=== PATIENT | female | born 1965 | race Caucasian/White ===

== ENCOUNTER 2023-11-06 03:22 | Emergency (ER) | payer OTHER, SELFPAY ==
[2023-11-06 03:27] VITALS: BP 161/93; PULSE 99; RESP 18; TEMP 36.6; O2SAT 99
--- NOTE | 2023-11-06 03:30 | DI.RAD_ITS ---
Exam(s) XR SHOULDER LT COMPLETE 2+V EXAM: XR SHOULDER LT COMPLETE 2+V CLINICAL HISTORY: fall, left shoulder pain. TECHNIQUE: 2D digital imaging was performed of the left shoulder. Four images were obtained. AP, G rashey and Y views were obtained. COMPARISON: No exams were available for comparison FINDINGS: BONES: No acute fracture is present. No bony destructive lesion is seen. JOINTS: No dislocation present. Mild degenerative changes at the acromioclavicular joint. The glenoh umeral joint is well maintained. SOFT TISSUE: In the left hilum, there is a spiculated appearance of the soft tissues which are irregu lar. A hilar mass, or infiltrate can not be excluded. IMPRESSION: 1. No acute fracture or dislocation. 2. Spiculated appearance seen in the left hilum. Mass can not be excluded. Chest x-ray and or CT sc an of the chest is recommended for further evaluation. Unexpected findings DATA REPOSITORY: RADIATION DOSE DELIVERED:
--- NOTE | 2023-11-06 03:39 | DI.CT_ITS ---
Exam(s) CT HEAD FACIAL WO EXAM: CT HEAD FACIAL WO CLINICAL HISTORY: fall, struck face/right maxilla. TECHNIQUE: Imaging Protocol: Axial computed tomography images with coronal and sagittal reformatted images were created and reviewed COMPARISON: No exams were available for comparison FINDINGS: CT Head: Ventricles and Extra axial spaces: Normal in size and morphology for the patient's age. Hemorrhage: None. Cerebral parenchyma: Normal. Midline shift: None. Brainstem/Cerebellum: Normal. Calvarium: Prior left craniotomy. Visualized Paranasal sinuses/Mastoids: There is a small fluid level in the right maxillary sinus. Th ere is opacification of a few right ethmoid air cells. Soft Tissues: Unremarkable. CT Face: Facial Bones: There is a right orbital floor fracture there is a 3 mm depression of the fracture. N o muscle entrapment is seen. There is a tiny amount of retrobulbar air. There does appear to be inv olvement of the infraorbital foramen. There may also be a medial orbital wall fracture on the right. Sinuses and Mastoids: There is a small fluid level in the right maxillary sinus. Globes, extraocular muscles, optic nerves and retrobulbar fat: Normal. Upper aerodigestive tract: Normal. Mandible and bilateral temporomandibular joints: Normal. Soft tissues: There is edema seen in the soft tissues over the right cheek and the right periorbital soft tissues. There is a small amount of gas seen in the soft tissues of the right face. IMPRESSION: 1. No acute intracranial process. 2. Right orbital floor fracture with 3 mm of depression. No muscle entrapment is identified. There is a tiny amount of retrobulbar air on the right. There is a question of involvement of the infraorb ital foramen. 3. Question of a fracture of the medial wall of the right orbit. 4. Soft tissue swelling in the right periorbital region and over the right cheek with a small amount of gas in the soft tissues. No radiopaque foreign bodies are seen. RADIATION DOSE DELIVERED: Total DLP DATA REPOSITORY: All CT scans at this facility are submitted to the National Radiology Data Registry (NRDR) Dose Index Registry (DIR) with the [employer] (A[employer]). RADIATION OPTIMIZATION: All CT scans at this facility use at least one of these dose optimization te chniques: automated exposure control; mA and/or kV adjustment per patient size (includes targeted exa ms where dose is matched to clinical indication); or iterative reconstruction.
[2023-11-06] MEDS: Acetaminophen 500 MG TAB 1000 MG PO (03:50)
--- NOTE | 2023-11-06 04:59 | DI.VRAD_ITS ---
PROCEDURE INFORMATION: Exam: CT Head Without Contrast Exam date and time: 11/06/2023 4:23 AM Age: 57 years old Clinical indication: Injury or trauma; Blunt trauma (contusions or hematomas); Consciousness not specified; Cheek bone; Injury details: Fall, struck face/right maxilla TECHNIQUE: Imaging protocol: Computed tomography of the head without contrast. COMPARISON: No relevant prior studies available. FINDINGS: Limitations: Images degraded due to artifact caused by external hardware. Brain: No intracranial hemorrhage appreciated. No significant focal mass effect or significant midline shift. Small chronic bifrontal hygromas. Generalized parenchymal volume loss. Cerebral ventricles: No disproportionate ventriculomegaly. Paranasal sinuses: No air-fluid levels seen. Mastoid air cells: No mastoid effusion. Bones/joints: Left craniotomy. Facial bone fractures are present. CT scan of the facial bones dictated separately. Soft tissues: Left hand pole encephalomalacia. Right periorbital soft tissue swelling. Vasculature: Arterial calcifications. IMPRESSION: 1. No intracranial sequelae of trauma appreciated. 2. Facial bone fractures are present. CT scan of the facial bones dictated separately. PROCEDURE INFORMATION: Exam: CT Maxillofacial Without Contrast Exam date and time: 11/06/2023 4:23 AM Age: 57 years old Clinical indication: Injury or trauma; Blunt trauma (contusions or hematomas); Consciousness not specified; Cheek bone; Injury details: Fall, struck face/right maxilla TECHNIQUE: Imaging protocol: Computed tomography of the face without contrast. COMPARISON: No relevant prior studies available. FINDINGS: Limitations: Artifact from metallic dental hardware obscures surrounding tissues. Orbital cavities: Globes intact. Bones/joints: Comminuted depressed right orbital floor fracture. Right medial orbital wall fracture. Paranasal sinuses: Hemorrhage in the right maxillary sinus. Lymph nodes: Bilateral cervical lymph nodes. Soft tissues: Right facial and periorbital hematoma and edema. Gas in the right facial soft tissues may be secondary to fracture, penetrating trauma, or infection. Please correlate clinically. IMPRESSION: 1. Right orbital fractures as above. 2. Additional findings as above. 3. Additional studies dictated separately. Dictated and Authenticated by: Sherine Pires MD. Ordering:RAY Miguel MD
--- NOTE | 2023-11-06 05:33 | DI.VRAD_ITS ---
PROCEDURE INFORMATION: Exam: XR Left Shoulder Exam date and time: 11/06/2023 4:15 AM Age: 57 years old Clinical indication: Pain and injury or trauma; Blunt trauma (contusions or hematomas); Injury details: Fall, left shoulder pain TECHNIQUE: Imaging protocol: Radiologic exam of the left shoulder. Views: 2 or more views. COMPARISON: No relevant prior studies available. FINDINGS: Bones/joints: Mild osteoarthritis of the acromioclavicular joint. Lungs: Somewhat dysplastic appearance of the visualized left hilum with architectural distortion. Soft tissues: Normal. IMPRESSION: 1. No acute or aggressive osseous abnormality. Mild osteoarthritis of the acromioclavicular joint. 2. Somewhat dysplastic appearance of the left hilum with suggestion of architectural distortion. Recommend chest radiograph for further assessment of the mediastinum. Dictated and Authenticated by: Crow Martinez MD. Ordering:RAY Miguel MD
[2023-11-06] MEDS: Fluorescein STRIPS 100/BOX 1 MG (05:41)
[2023-11-06] MEDS: Tetracaine 0.5% 4 ML BTL (05:46)
--- NOTE | 2023-11-06 06:01 | ED.GENADUL_ITS ---
Discharge Plan Disposition Patient Disposition: Home Condition: Good Discharge Details Clinical Impression: Medial orbital wall fracture, Face lacerations, Orbital floor fracture Primary Care Provider: Singh Bates ED Provider: Myriam Longoria Home Meds and New Rx's Prescriptions: New amoxicillin-pot clavulanate 875-125 mg tablet 1 tab PO BID Qty: 14 0RF Continued celecoxib [Celebrex] 200 mg capsule 200 mg PO DAILY pantoprazole [Protonix] 20 mg tablet,delayed release (DR/EC) 20 mg PO BID Discharge Instructions Instructions: Facial Fracture (ED), Facial Laceration (ED) Additional Instructions: -tylenol and ibuprofen over the counter for pain; follow the directions on the bottle -Apply intermittent cold therapy over the injury site for the first 48 hours to reduce swelling. -Sleep with the head of the bed elevated -Avoid nose blowing and sniffing. Stitches out in 7 days; primary care, urgent care, or in the ED Antibiotic twice a day for the next 7 days. Followup with ophthalmology within the next 7 days; a referral has been sent and they should call you. If you have an opthamologist in [place] you can also see them- call today to schedule the appointment and tell them you have orbital floor and orbital wall fractures. Call your oncologist today to schedule an appointment to follow up- your XR showed a lesion on your lung and they may want to get more imaging sooner to see if this is new or if it is cancerous. Return to the emergency department for new or worsening symptoms including pain with eye movement, vision changes, double vision, or if you have any other concerns. HPI General Mode of arrival: ambulatory . Date/Time Provider Initiated Documentation: 11/06/23 03:26 . Limitations to Documentation: no limitations . Information obtained by: patient . HPI Narrative: 57yo F with hx COPD, GERD, presenting after mechanical fall. Mother is hospitalized here; patient staying her mother's house which she does not typically do, got up to use the bathroom in the middle of the night in the dark and tripped, fell forward and struck her face. No loss of consciousness. Did not feel lightheaded prior to this. Has right facial pain and left shoulder pain, otherwise denies pain or injury. No vision changes, numbness, tingling, weakness, or vertigo. She is otherwise in her usual state of health with no fevers, chills, rash, chest pain, shortness of breath, abdominal pain, or other concerns. Related Data Home Medications Medication Instructions Recorded Confirmed amoxicillin 875 mg-potassium 1 tab PO BID #14 tabs 11/06/23 clavulanate 125 mg tablet celecoxib 200 mg capsule (Celebrex) 200 mg PO DAILY 11/06/23 11/06/23 pantoprazole 20 mg tablet,delayed 20 mg PO BID 11/06/23 11/06/23 release (Protonix) Previous Rx's Medication Instructions Recorded amoxicillin 875 mg-potassium 1 tab PO BID #14 tabs 11/06/23 clavulanate 125 mg tablet Allergies Allergy/AdvReac Type Severity Reaction Status Date / Time No Known Allergies Allergy Unverified 11/06/23 03:39 General Stated Complaint: Fall/Non TraumaCriteria DWAYNE: 3 Review of Systems Narrative: see HPI Exam Narrative Exam Narrative: GENERAL: Alert, no acute distress. SKIN: Warm and well perfused. HEAD: Right perioribital echymosis and tenderness. ~3cm curved laceration below right eye. Otherwise atraumatic. EYES: PERRL. No scleral icterus or conjunctival injection. Extraocular muscles intact and pain free without nystagmus or diplopia. No proptosis or enophthalmos. R: ? ? VA- 20/40 ? IOP- 13.8 ? ?Lids/lashes- nml ?Conjuctiva-white ?Cornea: Clear ? Flurosceine: No abrasion or ulcer, neg Se[place]els. L: ? ? VA- 20/50 ? ?Lids/lashes- nml ?Conjuctiva-white ?Cornea: Clear ? NOSE: No discharge, tenderness, laxity. No nasal septal hematoma. MOUTH: No malocclusion or trismus. Moist mucus membranes without blood. NECK: Trachea midline. No discolorations or edema. CV: Regular rate and rhythm, Normal s1 and s2. No murmurs, rubs, or gallops. PV: Radial pulses 2+ bilaterally and symmetric. 2+ capillary refill. No extremity edema. CHEST: Chest symmetric with respirations. No chest wall tenderness. Lungs are clear to auscultation bilaterally. ABDOMEN: Soft, nondistended, nontender. BACK: Spine without bony tenderness, no step offs. PELVIC: Pelvis stable, MSK: No gross deformities or discolorations or lesions. Tolerates full range of motion of extremities without tenderness. Neuro: ? GCS 15.? PERRL.? EOMI.? Fluent speech, no dysarthria. Normal sensation in V1, V2, and V3 segments bilaterally. No asymmetry, no nasolabial fold flattening. Normal hearing to speech Motor- 5/5 strength symmetric bilateral upper and lower extremities Sensation- ?Intact to light touch and symmetric multiple dermatomes including upper and lower extremities Gait/station: ?Normal stance.? No truncal ataxia. Steady gait with equal normal steps Course Vital Signs Vital signs: Vital Signs Temperature 36.6 C 11/06/23 03:27 Pulse 99 H 11/06/23 03:27 Respiratory Rate 18 11/06/23 03:27 Blood Pressure 161/93 H 11/06/23 03:27 Pulse Oximetry 99 11/06/23 03:27 Temperature 36.6 C 11/06/23 03:27 Pulse 99 H 11/06/23 03:27 Respiratory Rate 18 11/06/23 03:27 Respiratory Effort Normal 11/06/23 03:31 Blood Pressure 161/93 H 11/06/23 03:27 Pulse Oximetry 99 11/06/23 03:27 Pain Level 7 11/06/23 03:27 Procedures Laceration Laceration 1: Site: face Side (If applicable): right Size (cm): 3 Description: linear Depth: simple, single layer Local Anesthetic: Lidocaine 2% and with Epi Amount of anesthesia used (mL): 3 Pre-repair: wound explored, irrigated extensively and deep structures intact Skin layer closed with: nylon Size (cm): 6-0 and other (skin glue) Number of sutures: 4 Technique: simple, interrupted Medical Decision Making 57yo F with hx COPD, GERD, hx small cell lung cancer, presenting after mechanical fall; tripped in the dark while staying in someone else's house. Right facial pain and left shoulder pain, otherwise denies pain or injury. No neurologic symptoms. - LOC -AC. Hypertensive on arrival, vital signs otherwise reassuring. On exam she has right periorbital echymosis and a ~3cm c shaped laceration below her right eye. Eye exam reassuring; good visual acuity, no pain or diplopia with EOM, normal IOP. Normal neurologic exam. Laceration repaired and given tetanus booster. Tylenol for pain. No indication for labs. CT head/face independently reviewed; no intracranial bleed or mass on my view, agree with radiology read below with right inferior and medial orbital wall fractures. Shoulder XR independently reviewed, no displaced fracture on my view, agree with radiology read below. Patient advised of incidental lung finding and instructed to call her oncologist SIM to follow up for further workup as this could represent recurrence of her cancer. No indication of eye injury or EOM entrapment on exam; appropriate to followup with ophthalmology on an outpatient basis. Given fracture and evidence of hemmoraghe into sinus cavity, elected to start 7 day course of augmentin. On reassessment she remains well appearing with reassuring vital signs. Discharged home; discharge instructions and strict return precautions were reviewed with patient who verbalized understanding. All questions were answered and she is in full agreement with the plan. Imaging Data Radiologic Study: Imaging: CT Scan Radiologist's impression: IMPRESSION: 1. No intracranial sequelae of trauma appreciated. 2. Facial bone fractures are present. CT scan of the facial bones dictated separately IMPRESSION: 1. Right orbital fractures as above (Comminuted depressed right orbital floor fracture. Right medial orbital wall fracture) . 2. Additional findings as above. 3. Additional studies dictated separately. Radiologic Study #2: Imaging: X-Ray Radiologist's impression: IMPRESSION: 1. No acute or aggressive osseous abnormality. Mild osteoarthritis of the acromioclavicular joint. 2. Somewhat dysplastic appearance of the left hilum with suggestion of architectural distortion. Recommend chest radiograph for further assessment of the mediastinum. Quality:SDOH Health Related Social Needs: No Data to Display PFSH All Active Problems (Updated 11/06/23 @ 05:55 by Myriam Longoria MD) Orbital floor fracture (Acute) Face lacerations (Acute) Medial orbital wall fracture (Acute) Social History Smoking risk assessment performed?: No Substance use type: does not use Do you feel safe at home: Yes PAWSS Have you Been Recently Intoxicated or Drunk Within the Last 30 days?: No Have you Ever Experienced Previous Episodes of Alcohol Withdrawal?: No Have you ever Experienced Withdrawal Seizures?: No Have you ever Experienced Delirium Tremens(DT)s?: No Have you ever undergone Alcohol Rehabilitation Treatment (i.e, inpt ot outpatient treatment programs)?: No Have you ever Experienced Blackouts?: No Have you ever Combined Alcohol with other Downers within the last 90 days?: No Have you ever Combined Alcohol with any other Substance of Abuse during the last 90 days?: No Positive Blood Alcohol level on Presentation? [PCS.BAL]: No Evidence of Increased Autonomic Activity (i.e. HR>120, tremor, sweating, agitation, nausea)?: No Result: 0
[2023-11-06] MEDS: Amoxicillin 875/Clav. 125 TAB PO (06:07)
== END 2023-11-06 06:10 | disposition home or self-care (01) ==
PROVIDERS: Emergency Provider Student in an Organized Health Care Education/Training Program; PCP Internal Medicine
DX: S02.31XA Fracture of orbital floor, right side, initial encounter for closed fracture (principal); S02.831A Fracture of medial orbital wall, right side, initial encounter for closed fracture; S01.111A Laceration without foreign body of right eyelid and periocular area, initial encounter; J44.9 Chronic obstructive pulmonary disease, unspecified; W01.198A Fall on same level from slipping, tripping and stumbling with subsequent striking against other object, initial encounter; Y93.01 Activity, walking, marching and hiking; Y92.012 Bathroom of single-family (private) house as the place of occurrence of the external cause; Z23 Encounter for immunization
CPT/HCPCS: 12013; 90471; 90715; 99284; 70450; 70486; 73030